=== PATIENT | female | born 1995 | race American Indian/Alaskan Native ===

== ENCOUNTER 2017-09-15 16:19 | Emergency (ER) | payer MEDICAID ==
[2017-09-15 16:27] VITALS: PULSE 84
--- NOTE | 2017-09-15 18:14 | C.PDOC ---
History Of Present Illness <Hetal Levy - Last Filed: 09/15/17 19:02> <Juanito Griffin - Last Filed: 09/15/17 19:44> 22 y/o female, , presents to ED c/o pelvic pain for "weeks." Pt was evaluated at [facility] yesterday and was told she was , and told to return for ultrasound. Notes that pain still persists. Denies vaginal bleeding, vaginal discharge, dysuria, hematuria, urinary frequency, or fever. (Hetal Levy) History Per: Patient History/Exam Limitations: no limitations Onset/Duration Of Symptoms: Days Current Symptoms Are (Timing): Still Present Location Of Pain/Discomfort: Suprapubic Radiation Of Pain To:: None Quality Of Discomfort: "Pain" Associated Symptoms: denies: Nausea, Vomiting, Loss Of Appetite, Back Pain, Chest Pain, Constipation, Urinary Symptoms Exacerbating Factors: None Alleviating Factors: None Recent travel outside of the [place]: No Additional History Per: Patient Abnormal Vaginal Bleeding: No : 2 Para: 1 <Hetal Levy - Last Filed: 09/15/17 19:02> <Juainto Griffin - Last Filed: 09/15/17 19:44> Time Seen by Provider: 09/15/17 17:08 Chief Complaint (Nursing): Abdominal Pain Past Medical History Reviewed: Historical Data, Nursing Documentation, Vital Signs - Medical History PMH: Asthma Family History: States: Unknown Family Hx - Social History Hx Alcohol Use: No Hx Substance Use: No - Immunization History Hx Tetanus Toxoid Vaccination: No Hx Influenza Vaccination: No Hx Pneumococcal Vaccination: No <Hetal Levy - Last Filed: 09/15/17 19:02> Vital Signs: Last Vital Signs Temp 98 F 09/15/17 16:23 Pulse 84 09/15/17 16:23 Resp 18 09/15/17 16:23 BP 132/75 09/15/17 16:23 Pulse Ox 98 09/15/17 19:02 Review Of Systems Except As Marked, All Systems Reviewed And Found Negative. Constitutional: Negative for: Fever, Chills Gastrointestinal: Positive for: Abdominal Pain. Negative for: Nausea, Vomiting , Diarrhea, Constipation Genitourinary: Positive for: Pelvic Pain. Negative for: Dysuria, Frequency, Hematuria, Vaginal Discharge, Vaginal Bleeding Musculoskeletal: Negative for: Back Pain <Hetal Levy - Last Filed: 09/15/17 19:02> Physical Exam - Physical Exam Appears: Non-toxic, No Acute Distress Skin: Normal Color, Warm, Dry Head: Atraumatic, Normacephalic Eye(s): bilateral: Normal Inspection Nose: Normal Oral Mucosa: Moist Neck: Normal ROM, Supple Chest: Symmetrical Cardiovascular: Rhythm Regular, No Murmur Respiratory: Normal Breath Sounds, No Rales, No Rhonchi, No Wheezing Gastrointestinal/Abdominal: Soft, Tenderness (pelvic), No Guarding, No Rebound Extremity: Normal ROM Neurological/Psych: Oriented x3, Normal Speech <Hetal Levy - Last Filed: 09/15/17 19:02> ED Course And Treatment - Laboratory Results Result Diagrams: 09/15/17 18:15 09/15/17 18:15 O2 Sat by Pulse Oximetry: 98 (RA) Pulse Ox Interpretation: Normal Progress Note: Blood work, UA, transvaginal ultrasound ordered. Patient was given Tylenol. Pt will be signed over to Dr. Griffin, pending results, re-evaluation , and disposition. <Hetal Levy - Last Filed: 09/15/17 19:02> - Laboratory Results Result Diagrams: 09/15/17 18:15 09/15/17 18:15 <Juanito Griffin - Last Filed: 09/15/17 19:44> Disposition - Disposition Disposition Time: 19:02 <Hetal Levy - Last Filed: 09/15/17 19:02> Counseled Patient/Family Regarding: Diagnosis - Disposition Disposition Time: 19:42 - POA Present On Arrival: None <Juanito Griffin - Last Filed: 09/15/17 19:44> - Disposition Referrals: [facility] [Outside] Disposition: HOME/ ROUTINE Condition: STABLE Prescriptions: Acetaminophen [Tylenol 325mg tab] 650 mg PO Q4 #20 tab Instructions: (ED), Abdominal Pain in (ED) Forms: [employer] (Nepali) - Clinical Impression Clinical Impression: Pelvic pain, - 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 - Scribe Statement The provider has reviewed the documentation as recorded by the Scribe <Hetal Levy - Last Filed: 09/15/17 19:02> <Juanito Griffin - Last Filed: 09/15/17 19:44> - Scribe Statement Jarad Gerber All medical record entries made by the Scribe were at my direction and personally dictated by me. I have reviewed the chart and agree that the record accurately reflects my personal performance of the history, physical exam, medical decision making, and the department course for this patient. I have also personally directed, reviewed, and agree with the discharge instructions and disposition. (Hetal Levy) Physician Patient Turnover Patient Signed Over To: Juanito Griffin Handoff Comments: pending results, re-evaluation, and disposition. <Hetal Levy - Last Filed: 09/15/17 19:02>
[2017-09-15 18:20] LABS: BASO % 0.6 % (0.0-2.0); EOS # 0.2 K/uL (0.0-0.7); EOS % 3.6 % (0.0-4.0); HEMATOCRIT 43.5 % (34.0-47.0); LYMPH # 2.1 K/uL (1.0-4.3); LYMPH % 32.9 % (20.0-40.0); MEAN CELL VOLUME 76.3 fL (81.0-99.0); MEAN CORPUSCULAR HEMOGLOBIN 24.5 pg (27.0-31.0); MEAN CORPUSCULAR HGB CONC 32.1 g/dL (33.0-37.0); MEAN PLATELET VOLUME 9.2 fL (7.2-11.7); MONO # 0.7 K/uL (0.0-0.8); MONO % 10.9 % (0.0-10.0); NRBC % 0.2 % (0.0-2.0); RED CELL DISTRIBUTION WIDTH 15.3 % (11.5-14.5); WHITE BLOOD COUNT 6.3 K/uL (4.8-10.8)
[2017-09-15 18:24] LABS: RBC URINE < 1 /hpf (0-3); URINE BILIRUBIN NEGATIVE (NEGATIVE); URINE BLOOD NEGATIVE (NEGATIVE); URINE COLOR Colorless (YELLOW); URINE GLUCOSE (UA) NORMAL (Normal); URINE KETONE NEGATIVE (NEGATIVE); URINE LEUKOCYTE ESTERASE NEG Leu/uL (Negative); URINE PROTEIN NEGATIVE (NEGATIVE); URINE UROBILINOGEN NORMAL mg/dL (0.2-1.0); WBC URINE < 1 /hpf (0-5)
[2017-09-15 18:33] LABS: ALKALINE PHOSPHATASE 69 U/L (38-126); ALT/SGPT 56 U/L (9-52); AST/SGOT 30 U/L (14-36); BILIRUBIN,TOTAL 0.4 mg/dL (0.2-1.3); BLOOD UREA NITROGEN 8 mg/dL (7-17); CALCIUM 8.3 mg/dl (8.6-10.4); CARBON DIOXIDE 20 mmol/L (22-30); CHLORIDE 101 mmol/L (98-107); GFR AFRICAN-AMERICAN > 60; GLUCOSE,RANDOM 78 mg/dL (65-105); POTASSIUM 3.6 mmol/L (3.6-5.2); SODIUM 135 mmol/L (132-148); TOTAL PROTEIN 8.7 g/dL (6.3-8.3)
--- NOTE | 2017-09-15 19:22 | US ---
EXAM: US First Trimester, Transabdominal CLINICAL HISTORY: 22 years old, female; Pain; Other: Not specified; positive test; LMP 08/08/17 TECHNIQUE: Real-time transabdominal obstetrical ultrasound of the maternal pelvis and a first trimester with image documentation. COMPARISON: No relevant prior studies available. FINDINGS: Gestation: Placenta/amniotic fluid: Cannot be adequately evaluated due to the early gestational age. Uterus/cervix: Uterus is anteflexed. The uterus measures approximately 8.6 x 4.6 by 6.3 cm. Endometrium measures approximately 8 mm in width. No myometrial mass. Ovaries: Right ovary measures approximately 3 x 2 x 3 cm. Left ovary measures approximately 3 x 2.3 x 2.7 cm. There are small follicles in the left ovary. There is flow in both ovaries on Doppler imaging. No mass. Free fluid: There is no definite free fluid Bladder: Bladder is almost empty which limits evaluation. Other findings: There are no prior studies for comparison. IMPRESSION: Limited by transabdominal technique and incomplete bladder distention, no intrauterine or ectopic gestation identified EXAM: US , Transvaginal EXAM DATE/TIME: 09/15/2017 5:24 PM CLINICAL HISTORY: 22 years old, female; Pain; Other: Not specified; positive test; LMP 08/08/17 TECHNIQUE: Real-time transvaginal obstetrical ultrasound of the maternal pelvis and a first trimester with image documentation. Transvaginal imaging was used for better evaluation of the fetus and adnexa. COMPARISON: There are no prior studies for comparison. FINDINGS: Uterus: Uterus measures approximately 8.4 x 4.7 by 5.8 cm. Endometrium measures 14.4 mm in width. Cervix measures approximately 3 cm in length. There is no intrauterine gestation. Ovaries: Right ovary measures approximately 4.2 x 2.5 x 3.8 cm. There are multiple follicles. There is a corpus luteum. There is expected blood flow on Doppler imaging . Left ovary measures approximately 2.5 x 2.1 x 2.3 cm. There are multiple small follicles. There is intraovarian blood flow. Free fluid: There is a small amount of free fluid in the cul-de-sac. Adnexa: There are no adnexal masses IMPRESSION: No intrauterine or ectopic gestation identified, thickened endometrium; no significant free fluid; right ovarian corpus luteum Followup beta-hCG levels and imaging advised to document development of a gestation
[2017-09-15 20:01] VITALS: BP 130/77; RESP 20; TEMP 98.3; O2SAT 97
== END 2017-09-15 20:01 | disposition home or self-care (01) ==
LOC: C.ER 16:19
DX: O26.891 Other specified pregnancy related conditions, first trimester (principal); R10.2 Pelvic and perineal pain; Z3A.00 Weeks of gestation of pregnancy not specified

== ENCOUNTER 2017-09-29 20:00 | Emergency (ER) | payer MEDICAID, OTHER ==
[2017-09-29 20:06] VITALS: O2SAT 98
[2017-09-29] MEDS ORDERED: Lactated Ringer's 1,000 ML IV STA (20:17)
[2017-09-29] MEDS ORDERED: Lactated Ringer's 1,000 ML ONE (20:25)
--- NOTE | 2017-09-29 20:27 | C.PDOC ---
History Of Present Illness 22 year old female who is 7 weeks , P:1 presents to the ER with a complaint of vaginal bleeding, associated with some nausea. Denies vomiting and dysuria. Time Seen by Provider: 09/29/17 20:15 Chief Complaint (Nursing): Female Genitourinary History Per: Patient History/Exam Limitations: no limitations Onset/Duration Of Symptoms: Days Current Symptoms Are (Timing): Still Present Quality Of Discomfort: Unable To Describe Associated Symptoms: Nausea. denies: Fever, Chills, Vomiting, Urinary Symptoms Alleviating Factors: None Recent travel outside of the [place] States: No Abnormal Vaginal Bleeding: Yes Past Medical History Reviewed: Historical Data, Nursing Documentation, Vital Signs Vital Signs: Last Vital Signs Temp 98.3 F 09/30/17 00:25 Pulse 84 09/30/17 00:25 Resp 20 09/30/17 00:25 BP 122/72 09/30/17 00:25 Pulse Ox 98 09/30/17 00:25 - Medical History PMH: Asthma Surgical History: No Surg Hx Family History: States: Unknown Family Hx - Social History Hx Alcohol Use: No Hx Substance Use: No - Immunization History Hx Tetanus Toxoid Vaccination: No Hx Influenza Vaccination: No Hx Pneumococcal Vaccination: No Review Of Systems Constitutional: Negative for: Fever, Chills Gastrointestinal: Positive for: Nausea. Negative for: Vomiting, Abdominal Pain Genitourinary: Positive for: Vaginal Bleeding Physical Exam - Physical Exam Appears: Non-toxic, No Acute Distress Skin: Normal Color, Warm, Dry Head: Atraumatic, Normacephalic Eye(s): bilateral: Normal Inspection Oral Mucosa: Moist Chest: Symmetrical, No Tenderness Cardiovascular: Rhythm Regular Respiratory: Normal Breath Sounds, No Rales, No Rhonchi, No Wheezing Gastrointestinal/Abdominal: Bowel Sounds (Active), Soft, No Tenderness Neurological/Psych: Oriented x3, Normal Speech ED Course And Treatment - Laboratory Results Result Diagrams: 09/29/17 20:27 09/29/17 20:27 O2 Sat by Pulse Oximetry: 98 (Room air) Pulse Ox Interpretation: Normal Progress Note: Blood work and urinalysis ordered. IV fluids administered. Disposition - Disposition Referrals: Jenna Phillip, [Non-Staff] - Disposition: HOME/ ROUTINE Disposition Time: 00:45 Condition: GOOD Additional Instructions: Thank you for letting us take care of you today. The emergency medical care you received today was directed at your acute symptoms. If you were prescribed any medication, please fill it and take as directed. It may take several days for your symptoms to resolve. Return to the Emergency Department if your symptoms worsen, do not improve, or if you have any other problems. Please contact your doctor or call one of the physicians/clinics you have been referred to that are listed on the Patient Visit Information form that is included in your discharge packet. Bring any paperwork you were given at discharge with you along with any medications you are taking to your follow up visit. Our treatment cannot replace ongoing medical care by a primary care provider (PCP) outside of the emergency department. Thank you for allowing the [facility] team to be part of your care today. Follow up with your DIRECTOR CRITICAL CARE doctor in 2-3 days for re-evaluation and further management. Instructions: Threatened Miscarriage (ED), Pelvic Rest (ED) Forms: [employer] (Monegasque) - Clinical Impression Clinical Impression: Threatened - Scribe Statement The provider has reviewed the documentation as recorded by the Scribcarline Hernandez All medical record entries made by the Scribe were at my direction and personally dictated by me. I have reviewed the chart and agree that the record accurately reflects my personal performance of the history, physical exam, medical decision making, and the department course for this patient. I have also personally directed, reviewed, and agree with the discharge instructions and disposition.
[2017-09-29 20:32] LABS: BASO % 0.7 % (0.0-2.0); EOS # 0.3 K/uL (0.0-0.7); EOS % 4.8 % (0.0-4.0); HEMATOCRIT 41.6 % (34.0-47.0); LYMPH # 2.3 K/uL (1.0-4.3); LYMPH % 32.1 % (20.0-40.0); MEAN CELL VOLUME 75.9 fL (81.0-99.0); MEAN CORPUSCULAR HEMOGLOBIN 24.5 pg (27.0-31.0); MEAN CORPUSCULAR HGB CONC 32.3 g/dL (33.0-37.0); MONO # 0.8 K/uL (0.0-0.8); NRBC % 0.1 % (0.0-2.0); RED CELL DISTRIBUTION WIDTH 15.7 % (11.5-14.5); WHITE BLOOD COUNT 7.1 K/uL (4.8-10.8)
[2017-09-29 20:45] LABS: ALB/GLOB RATIO 1.4 (1.0-2.1); ALKALINE PHOSPHATASE 64 U/L (38-126); ALT/SGPT 48 U/L (9-52); AST/SGOT 30 U/L (14-36); BILIRUBIN,TOTAL 0.4 mg/dL (0.2-1.3); BLOOD UREA NITROGEN 13 mg/dL (7-17); CALCIUM 8.6 mg/dl (8.6-10.4); CARBON DIOXIDE 23 mmol/L (22-30); CHLORIDE 103 mmol/L (98-107); GFR AFRICAN-AMERICAN > 60; GLUCOSE,RANDOM 82 mg/dL (65-105); POTASSIUM 3.9 mmol/L (3.6-5.2); SODIUM 137 mmol/L (132-148)
[2017-09-29 20:48] LABS: RBC URINE 7 /hpf (0-3); URINE BILIRUBIN NEGATIVE (NEGATIVE); URINE BLOOD 2+ (NEGATIVE); URINE COLOR Yellow (YELLOW); URINE GLUCOSE (UA) NORMAL (Normal); URINE KETONE NEGATIVE (NEGATIVE); URINE LEUKOCYTE ESTERASE NEG Leu/uL (Negative); URINE PROTEIN NEGATIVE (NEGATIVE); URINE UROBILINOGEN NORMAL mg/dL (0.2-1.0); WBC URINE 1 /hpf (0-5)
[2017-09-30 00:25] VITALS: BP 122/72; PULSE 84; RESP 20; TEMP 98.3
--- NOTE | 2017-09-30 00:41 | US ---
EXAM: US First Trimester, Transabdominal CLINICAL HISTORY: 22 years old, female; Signs and symptoms; Lmp or gestational age (in weeks): 08-08-2017; Antepartum complications; Bleeding; ; Additional info: Vaginal bleeding TECHNIQUE: Real-time transabdominal obstetrical ultrasound of the maternal pelvis and a first trimester with image documentation. COMPARISON: Pelvic ultrasound 09/15/17 FINDINGS: Gestation: There is a single gestational sac in the uterus.Gestational sac has mean diameter 15.8 mm. pole and yolk sac are not visible on transabdominal imaging. . Uterus: Uterus measures approximately 9 x 5 by 6 cm Ovaries: Right ovary measures approximately 3.2 x 1.6 x 2.3 cm.There is expected blood flow on Doppler imaging Left ovary measures approximately 2.6 x 2 by 2 cm.There is expected blood flow on Doppler imaging Free fluid: There is no free fluid. Bladder: Bladder is incompletely distended. IMPRESSION: Interval development of an intrauterine gestational sac, limited evaluation on transabdominal imaging EXAM: US , Transvaginal EXAM DATE/TIME: 09/29/2017 9:34 PM CLINICAL HISTORY: 22 years old, female; Signs and symptoms; Lmp or gestational age (in weeks): 08-08-2017; Antepartum complications; Bleeding; ; Additional info: Vaginal bleeding TECHNIQUE: Real-time transvaginal obstetrical ultrasound of the maternal pelvis and a first trimester with image documentation. Transvaginal imaging was used for better evaluation of the fetus and adnexa. COMPARISON: PELVIS/TRANSVAG US 2017-09-15 18:23 FINDINGS: Gestation: There is a single gestational sac in the uterus.Gestational sac has mean diameter 17.5 mm.[place] rump length measures 4.3 mm.There is a heart rate of 117 beats per minute.A yolk sac is present, internal diameter measures 2 mm Placenta/amniotic fluid: There is a subchorionic hemorrhage 11 x 6 mm.. Uterus/cervix: Uterus measures approximately 9.2 x 6 x 6.4 cm. Cervix measures approximately 3 cm in length. Ovaries: Right ovary measures 2.7 x 1.8 x 2.5 cm. Left ovary measures approximately 2.9 x 1.7 x 2.4 cm. There are multiple small follicles. There is intraovarian blood flow. No mass. Free fluid: There is trace fluid in the cul-de-sac. IMPRESSION: 6 week 1 day single living intrauterine gestation, estimated date of delivery 05/24/18; small subchorionic hemorrhage
== END 2017-09-30 01:06 | disposition home or self-care (01) ==
LOC: C.ER 20:00
DX: O20.0 Threatened abortion (principal); Z3A.01 Less than 8 weeks gestation of pregnancy
CPT/HCPCS: 76805; 76817; 80053; 81001; 83690; 84702; 85025; 99285; J7120

== ENCOUNTER 2017-12-01 00:20 | Emergency (ER) | payer OTHER ==
--- NOTE | 2017-12-01 02:09 | C.PDOC ---
History Of Present Illness pt is 15 weeks , presents with cramping left abd. No f/c/n/v. No vaginal bleeding. No dysuria. Time Seen by Provider: 12/01/17 02:09 Chief Complaint (Nursing): Abdominal Pain History Per: Patient History/Exam Limitations: no limitations Onset/Duration Of Symptoms: Hrs Current Symptoms Are (Timing): Still Present Context: Other Severity: Moderate Pain Scale Rating Of: 4 Location Of Pain/Discomfort: LLQ Radiation Of Pain To:: None Quality Of Discomfort: Cramping Associated Symptoms: denies: Fever, Chills, Nausea, Vomiting Exacerbating Factors: None Alleviating Factors: None Last Bowel Movement: Yesterday Recent travel outside of the [place]: No Additional History Per: Family Abnormal Vaginal Bleeding: No Past Medical History Reviewed: Historical Data, Nursing Documentation, Vital Signs Vital Signs: Last Vital Signs Temp 98.8 F 12/01/17 03:53 Pulse 86 12/01/17 03:53 Resp 20 12/01/17 03:53 BP 129/60 12/01/17 03:53 Pulse Ox 99 12/01/17 03:53 - Medical History PMH: Asthma Family History: States: No Known Family Hx - Social History Hx Alcohol Use: No Hx Substance Use: No - Immunization History Hx Tetanus Toxoid Vaccination: No Hx Influenza Vaccination: No Hx Pneumococcal Vaccination: No Review Of Systems Constitutional: Negative for: Fever, Chills ENT: Negative for: Throat Pain Cardiovascular: Negative for: Chest Pain Respiratory: Negative for: Shortness of Breath Gastrointestinal: Positive for: Abdominal Pain. Negative for: Nausea, Vomiting Genitourinary: Negative for: Dysuria Musculoskeletal: Negative for: Back Pain Skin: Negative for: Rash Neurological: Negative for: Weakness Psych: Negative for: Anxiety Physical Exam - Physical Exam Appears: Non-toxic, No Acute Distress Skin: Warm, Dry Head: Normacephalic Eye(s): bilateral: Normal Inspection Oral Mucosa: Moist Neck: Supple Chest: Symmetrical Cardiovascular: Rhythm Regular Respiratory: No Rales, No Rhonchi, No Wheezing Gastrointestinal/Abdominal: Bowel Sounds (tytmpanic to percussion), Soft, Tenderness, Distention (gravid) Back: Normal Inspection Extremity: Normal ROM Extremity: Bilateral: Atraumatic Neurological/Psych: Oriented x3 Gait: Steady ED Course And Treatment - Laboratory Results Result Diagrams: 12/01/17 02:54 12/01/17 02:54 O2 Sat by Pulse Oximetry: 98 Pulse Ox Interpretation: Normal Reevaluation Time: 04:22 Reassessment Condition: Improved Disposition Counseled Patient/Family Regarding: Studies Performed, Diagnosis, Need For Followup - Disposition Referrals: [facility] [Outside] [facility] [Outside] Disposition: HOME/ ROUTINE Disposition Time: 02:09 Condition: FAIR Instructions: Abdominal Pain in (ED) Forms: [employer] (German) - Clinical Impression Clinical Impression: Abdominal pain during intrauterine
[2017-12-01 02:58] LABS: BASO % 0.3 % (0.0-2.0); EOS # 0.3 K/uL (0.0-0.7); EOS % 4.2 % (0.0-4.0); HEMOGLOBIN 12.2 g/dL (11.0-16.0); LYMPH # 1.7 K/uL (1.0-4.3); LYMPH % 23.8 % (20.0-40.0); MEAN CORPUSCULAR HEMOGLOBIN 25.9 pg (27.0-31.0); MEAN CORPUSCULAR HGB CONC 33.7 g/dL (33.0-37.0); MEAN PLATELET VOLUME 9.7 fL (7.2-11.7); MONO # 0.6 K/uL (0.0-0.8); MONO % 9.2 % (0.0-10.0); NEUT # 4.3 K/uL (1.8-7.0); NEUT % 62.5 % (50.0-75.0); NRBC % 0.1 % (0.0-2.0); RBC 4.7 Mil/uL (3.80-5.20); RED CELL DISTRIBUTION WIDTH 14.6 % (11.5-14.5)
[2017-12-01 03:07] LABS: SQUAMOUS EPITHIAL 9 /hpf (0-5); URINE BILIRUBIN NEGATIVE (NEGATIVE); URINE BLOOD NEGATIVE (NEGATIVE); URINE CALCIUM OXALATE CRYSTALS RARE /hpf (<OCC); URINE CLARITY Hazy (Clear); URINE COLOR Yellow (YELLOW); URINE GLUCOSE (UA) NORMAL (Normal); URINE LEUKOCYTE ESTERASE TRACE Leu/uL (Negative); URINE NITRATE NEGATIVE (NEGATIVE); URINE PROTEIN 1+ mg/dL (NEGATIVE)
[2017-12-01 03:12] LABS: PROTHROMBIN TIME 10.7 SECONDS (9.7-12.2)
[2017-12-01 03:19] LABS: ALBUMIN 3.7 g/dL (3.5-5.0); ALT/SGPT 30 U/L (9-52); AST/SGOT 24 U/L (14-36); BLOOD UREA NITROGEN 7 mg/dL (7-17); GFR AFRICAN-AMERICAN > 60; GFR NON-AFRICAN AMERICAN > 60
[2017-12-01 03:55] VITALS: BP 129/60; PULSE 86; RESP 20; TEMP 98.8
--- NOTE | 2017-12-01 04:14 | US ---
EXAM: US After First Trimester, Transabdominal CLINICAL HISTORY: 22 years old, female; Pain; complicated by abdominal or pelvic pain; Lower; Second trimester; Gestational age or lmp: 08/09/17; ; Additional info: Abd pain, cramps, . TECHNIQUE: Real-time transabdominal obstetrical ultrasound of the maternal pelvis and a second or third trimester with image documentation. COMPARISON: No relevant prior studies available. FINDINGS: Fetus: Single live intrauterine gestation. Heart rate: heart rate of 137 beats per minute. Presentation: Breech. Placenta: Anterior placenta. No placenta previa or abruption. Amniotic fluid: Normal. Anatomy: No anomaly is appreciated. BIOMETRICS Gestational age by US: Estimated gestational age of 15 weeks 5 days by measurements. EFW: Estimated weight of 131 g (11.2%). BPD: 3.1 cm, correlating with 15 weeks 5 days. HC: 11.6 cm, correlating with 15 weeks 5 days. AC: 9.1 cm, correlating with 15 weeks 2 days. FL: 2.0 cm, correlating with 16 weeks 0 days. MATERNAL: Uterus: Unremarkable. No myometrial mass. Cervix: No cervical dilatation or effacement. Adnexa: Normal ovaries. No adnexal masses. Free fluid: No significant free fluid. IMPRESSION: 1. Single live intrauterine gestation.
[2017-12-01 04:23] VITALS: O2SAT 98
== END 2017-12-01 04:31 | disposition home or self-care (01) ==
LOC: C.ER 00:20
DX: O26.892 Other specified pregnancy related conditions, second trimester (principal); R10.9 Unspecified abdominal pain; Z3A.15 15 weeks gestation of pregnancy

== ENCOUNTER 2018-03-20 22:27 | Emergency (ER) | payer OTHER ==
[2018-03-20 23:07] VITALS: BMI 44.2
[2018-03-20 23:18] LABS: SQUAMOUS EPITHIAL 5 /hpf (0-5); URINE BILIRUBIN NEGATIVE (NEGATIVE); URINE BLOOD NEGATIVE (NEGATIVE); URINE CLARITY Hazy (Clear); URINE COLOR Yellow (YELLOW); URINE GLUCOSE (UA) NORMAL (Normal); URINE LEUKOCYTE ESTERASE 1+ Leu/uL (Negative); URINE PROTEIN NEGATIVE (NEGATIVE)
--- NOTE | 2018-03-20 23:37 | OBHP ---
Datetime: 03/20/2018 23:34 IP Adm Impression: , intrauterine IP Admit Plan: Discharge home Admit Comment, IP Provider: [email or web address] 30=wel came with c/o abdominal pin, no ctxs, v ,,lof=fm obhx 1 x c/s pmh de med pnv all nkda psh de soch de ve clossed ua neg a/p at 30+wels abdominl pin po hy cont pnv ptl given f/u i clinic Pelvic Type - PN: Adequate Extremities - PN: Normal Abdomen - PN: Normal Back - PN: Normal Breast - PN: Normal Lungs - PN: Normal Heart - PN: Normal Thyroid - PN: Normal Neurologic - PN: Normal HEENT - PN: Normal General - PN: Normal FHR - Baseline A Provider: 130 Contraction Comments Provider: none EGA AdmitDate IP: 31.0 Vital Signs Provider: Reviewed; Within Normal Limits IP Chief Complaint: Maternal discomfort NICHD Variability Prov Fetus A: Moderate 6-25bpm NICHD Accel Fetus A IP Provider: [id number] FHR Category Provider Fetus A: Category I Dilatation, Provider: 0 Effacement, Provider: 0 Station, Provider: -3 Genitourinary Exam: Normal DTRs - PN: Normal
--- NOTE | 2018-03-20 23:38 | OBDCSUM ---
Datetime: 03/20/2018 23:36 Discharged to, Provider: Home Follow up at, Provider: as schuled Follow up in weeks, Provider: clinic Discharge Comment, Provider: po hy cont pnv ptl given f/u i clinic Discharge Diagnosis Prov Other: 30we nst abdominal pain
[2018-03-21 04:20] VITALS: BP 129/53; PULSE 87; RESP 18; TEMP 98.1
== END 2018-03-20 23:49 | disposition home or self-care (01) ==
LOC: C.EROB 22:27
DX: O26.893 Other specified pregnancy related conditions, third trimester (principal); Z3A.30 30 weeks gestation of pregnancy; R10.9 Unspecified abdominal pain

== ENCOUNTER 2018-07-11 20:57 | Emergency (ER) | payer OTHER ==
[2018-07-11 20:57] VITALS: BMI 44.2
[2018-07-11 21:05] VITALS: TEMP 98.6; O2SAT 99
--- NOTE | 2018-07-11 22:23 | C.PDOC ---
History Of Present Illness 23 year old female w/ hx p/w abdominal pain, epigastric, without radiation, and with x2 diarrhea, non dark non bloody. Pain is burning, fully resolved after having a 2nd BM w/ diarrhea here. No nausea or vomiting. No vaginal d/c. No urinary complaints. No trauma or headache. No fever, chills or night sweats. No falls. No other complaints. Time Seen by Provider: 07/11/18 22:23 Chief Complaint (Nursing): Abdominal Pain History Per: Patient Past Medical History Vital Signs: Last Vital Signs Temp 98.6 F 07/11/18 21:01 Pulse 86 07/11/18 21:01 Resp 18 07/11/18 21:01 BP 114/76 07/11/18 21:01 Pulse Ox 99 07/11/18 22:23 - Medical History PMH: Asthma Family History: States: Unknown Family Hx - Social History Hx Alcohol Use: No Hx Substance Use: No - Immunization History Hx Tetanus Toxoid Vaccination: No Hx Influenza Vaccination: Yes Hx Pneumococcal Vaccination: No Review Of Systems Constitutional: Negative for: Fever Eyes: Negative for: Pain ENT: Negative for: Ear Pain Cardiovascular: Negative for: Chest Pain Respiratory: Negative for: Cough Gastrointestinal: Positive for: Abdominal Pain, Diarrhea. Negative for: Nausea , Vomiting, Constipation, Melena, Hematemesis Genitourinary: Negative for: Dysuria, Frequency, Incontinence, Hematuria, Vaginal Discharge, Vaginal Bleeding Musculoskeletal: Negative for: Neck Pain Physical Exam - Physical Exam Appears: Well, Non-toxic, No Acute Distress Skin: Normal Color, Warm, Dry Eye(s): bilateral: Normal Inspection, PERRL, EOMI Nose: Normal Throat: Normal Neck: Normal Cardiovascular: Rhythm Regular Respiratory: Normal Breath Sounds Gastrointestinal/Abdominal: Normal Exam, Soft, No Tenderness, No Organomegaly, No Mass, No Distention, No Guarding, No Rebound Back: Normal Inspection Extremity: Normal ROM Neurological/Psych: Oriented x3, Normal Speech, Normal Cognition Gait: Steady ED Course And Treatment - Laboratory Results Result Diagrams: 07/11/18 22:45 07/11/18 22:45 O2 Sat by Pulse Oximetry: 99 Medical Decision Making Medical Decision Makin yr old female p/w abdominal pain, w/ diarrhea x2. Epigastric abd pain, now fully resolved. NO RUQ/RLQ or LLQ pain. No dark or bloody stool. Pt notes recent preg, no indication of eclampsia w/ elevated pressures. Laying comfortably, Pending imaging and labs 2330 labs unremarkable, pain fully resolved, abdomen remains non tender. clear for d/ c home Disposition - Disposition Referrals: Luke Amaya MD [Primary Care Provider] - Disposition: HOME/ ROUTINE Disposition Time: 23:30 Condition: GOOD Instructions: Viral Gastroenteritis Forms: [employer] (Zambian) - Clinical Impression Clinical Impression: Gastroenteritis
[2018-07-11] MEDS ORDERED: Sodium Chloride 0.9% 1,000 ML IV SCH (22:30)
[2018-07-11 22:51] LABS: SQUAMOUS EPITHIAL 1 /hpf (0-5); URINE BILIRUBIN NEGATIVE (NEGATIVE); URINE BLOOD NEGATIVE (NEGATIVE); URINE CLARITY Clear (Clear); URINE COLOR Yellow (YELLOW); URINE GLUCOSE (UA) NORMAL (Normal); URINE LEUKOCYTE ESTERASE NEG Leu/uL (Negative); URINE PROTEIN NEGATIVE (NEGATIVE); URINE UROBILINOGEN NORMAL mg/dL (0.2-1.0)
[2018-07-11 22:58] LABS: VENOUS BLOOD GAS BASE EXCESS -0.3 mmol/L (0.0-2.0); VENOUS BLOOD GAS PCO2 57 mmHg (40-60); VENOUS BLOOD GAS PO2 26 mm/Hg (30-55); VENOUS BLOOD PH 7.29 (7.32-7.43)
[2018-07-11 23:00] LABS: BASO % 0.7 % (0.0-2.0); EOS # 0.2 K/uL (0.0-0.7); HEMOGLOBIN 14.1 g/dL (11.0-16.0); LYMPH # 2.1 K/uL (1.0-4.3); LYMPH % 44.2 % (20.0-40.0); MEAN CELL VOLUME 78.2 fL (81.0-99.0); MEAN CORPUSCULAR HEMOGLOBIN 25.7 pg (27.0-31.0); MEAN CORPUSCULAR HGB CONC 32.9 g/dL (33.0-37.0); MEAN PLATELET VOLUME 9.3 fL (7.2-11.7); MONO # 0.4 K/uL (0.0-0.8); MONO % 8.1 % (0.0-10.0); NRBC % 0.1 % (0.0-2.0); RBC 5.48 Mil/uL (3.80-5.20); RED CELL DISTRIBUTION WIDTH 15.5 % (11.5-14.5); WHITE BLOOD COUNT 4.7 K/uL (4.8-10.8)
[2018-07-11 23:01] LABS: ALB/GLOB RATIO 1.3 (1.0-2.1); ALBUMIN 4.4 g/dL (3.5-5.0); ALT/SGPT 18 U/L (9-52); AST/SGOT 18 U/L (14-36); BLOOD UREA NITROGEN 13 mg/dL (7-17); CALCIUM 9.3 mg/dl (8.6-10.4); GFR NON-AFRICAN AMERICAN > 60; LIPASE 69 U/L (23-300)
[2018-07-12 00:01] VITALS: BP 139/82; PULSE 76; RESP 16
== END 2018-07-12 | disposition home or self-care (01) ==
LOC: C.ER 20:57 → SUPCPDRO 20:57 → C.ER 07-12
DX: K52.9 Noninfective gastroenteritis and colitis, unspecified (principal)
CPT/HCPCS: 80053; 81001; 82803; 83690; 85025; 99284; J7030